=== PATIENT | female | born 1980 | race Caucasian/White ===

== ENCOUNTER 2017-03-11 10:52 | Emergency (ER) | payer OTHER ==
[2017-03-11 11:07] VITALS: RESP 18; TEMP 98.4
[2017-03-11] MEDS ORDERED: KETOROLAC 30 MG/1 ML SDV IVP ONE (11:25)
[2017-03-11] MEDS ORDERED: ONDANSETRON 4 MG/2 ML VIAL IVP ONE (11:25)
[2017-03-11] MEDS ORDERED: NS 1,000 ML IV ONE (11:25)
[2017-03-11 11:33] LABS: COLOR YELLOW; LEUKOCYTE ESTERASE,URINE NEGATIVE (NEGATIVE); NITRITE,URINE NEGATIVE (NEGATIVE)
[2017-03-11 11:37] LABS: AMORPHOUS 3+ /hpf (NONE-1+); BACTERIA TRACE /hpf (NONE SEEN); MUCUS 1+ /lpf (NONE-1+)
[2017-03-11 11:41] LABS: % IMMATURE GRANULYOCYTES 0.3 % (0.0-1.1); ABSOLUTE IMMATURE GRANULOCYTES 0.02 10^3/uL (0.00-0.10); ADD DIFF? NO; ADD MORPH? NO; ADD SCAN? NO; ATYPICAL LYMPHOCYTE FLAG 0 (0-99); FRAGMENT RBC FLAG 0 (0-99); LEFT SHIFT FLG 0 (0-99); LIPEMIA HEMOLYSIS FLAG 80 (0-99); MEAN CELL HEMOGLOBIN 25.6 pg (27.9-34.1); MEAN CELL HEMOGLOBIN CONCENTR. 32.3 g/dL (32.4-36.7); MEAN CELL VOLUME 79.3 fL (81.5-99.8); MEAN PLATELET VOLUME 10.6 fL (8.7-11.7); PLATELET CLUMPS FLAG 10 (0-99); PLATELET COUNT 226 10^3/uL (150-400); RED BLOOD CELL COUNT 3.91 10^6/uL (4.18-5.33); RED CELL DISTRIBUTION WIDTH 15.1 % (11.5-15.2)
[2017-03-11 11:58] LABS: ANION GAP 11 mEq/L (8-16); CALCIUM 8.7 mg/dL (8.5-10.4); CARBON DIOXIDE 20 mEq/l (22-31); CHLORIDE 109 mEq/L (97-110); CREATININE 0.7 mg/dL (0.6-1.0); GLOMERULAR FILTRATION RATE > 60; GLUCOSE 102 mg/dL (70-100); SODIUM 140 mEq/L (134-144)
[2017-03-11] MEDS ORDERED: TAMSULOSIN HCL 0.4 MG CAP PO ONE (12:11)
--- NOTE | 2017-03-11 12:16 | EDPHY ---
H & P Time Seen by Provider: 03/11/17 11:02 HPI/ROS: 36-year-old female presents complaining of sudden onset of severe left flank pain, associated with nausea. She had gone for a run this morning and had been feeling okay and when she returned started having intermittent flank pain followed by very severe flank pain that she initially called 911 for. After the ambulance arrived she felt a little bit better and was able to wait until her got home to drive to the emergency department. Prior to this episode today she had been having frequent urination without pain for the last 1 week for which she had self-treated with increasing fluids, cranberry juice and a supplement from whole foods. No fever or chills Review of systems As per HPI General no fever no chills no weakness HEENT no eye pain no eye discharge. No eye redness, no sore throat Respiratory no cough, no shortness of breath Cardiac no chest pain, no peripheral edema GI no abdominal pain, no diarrhea, no constipation, no nausea, no vomiting positive left flank pain, no hematuria, no dysuria, positive frequency Musculoskeletal no myalgias, no joint pain Heme no easy bruising, no easy bleeding Endo no polyuria, no polydipsia Skin no rashes, no pruritus Neuro no syncope, no dizziness, no headaches Psych is no suicidal ideation, no homicidal ideation Past Medical/Surgical History: Hypothyroidism Social History: Training for her 2nd ultra marathon in [place] April 2017 Smoking Status: Never smoked Physical Exam: 36-year-old female alert and oriented no acute distress nontoxic appearance afebrile Appears slightly pale HEENT atraumatic normocephalic, extraocular muscles intact, anicteric Oropharynx negative for erythema negative exudate, tolerating her own secretions Neck supple no meningismus Lungs clear to auscultation bilaterally Heart regular rate and rhythm without murmur rub or gallop Abdomen nondistended normoactive bowel sounds soft nontender Back mild left CVA tenderness, no step-offs, no spinal tenderness Extremities no cyanosis clubbing or edema Neuro alert and oriented, no focal deficits Constitutional: Initial Vital Signs Temperature (C) 36.9 C 03/11/17 11:05 Heart Rate 47 L 03/11/17 11:05 Respiratory Rate 18 03/11/17 11:05 Blood Pressure 141/92 H 03/11/17 11:05 O2 Sat (%) 99 08/09/17 11:05 O2 Delivery Mode Room Air Allergies/Adverse Reactions: No Known Allergies Allergy (Unverified 03/11/17 11:04) Home Medications: Medication Instructions Recorded Nuvaring Vaginal Ring 03/11/17 Synthroid 03/11/17 Tamsulosin HCl [Flomax 0.4 MG (*)] 0.4 mg PO DAILY #7 cap 03/11/17 oxyCODONE IR [Oxycodone Ir (*)] 5 mg PO Q6 PRN #6 tab 03/11/17 Medical Decision Making - Diagnostics Imaging Results: Imaging Impressions Abdomen/Pelvis CT 03/11/17 11:36 Impression: 1. Mild left hydroureteronephrosis secondary to a 3 mm obstructing calculus in the distal left ureterovesical junction. 2. No right nephrolithiasis or hydronephrosis. 3. No additional nephrolithiasis. 4. Left lower lobe probably benign 4 mm noncalcified pulmonary nodule. Attention: This CT examination is specifically designed to evaluate patients who are clinically suspected of having acute obstructive uropathy. This examination does not use radiographic contrast, and as such, provides only a limited evaluation of the abdomen, pelvis and retroperitoneum. If there is further clinical suspicion for pathological conditions other than obstructive uropathy, a complete CT evaluation of the abdomen and pelvis utilizing intravenous, oral, and rectal contrast should be considered. Findings and recommendations discussed with Emergency Department physician, Snehal Flood MD, at 1212 hours, 03/11/2017. Final report concurs with initial preliminary interpretation. ED Course/Re-evaluation: Patient seen and evaluated for acute left flank pain and urinary frequency Differential diagnosis considered Urinary tract infection, pyelonephritis, kidney stone Labs CBC with anemia hemoglobin 10, WBC within normal limits BMP within normal limits Urinalysis 3-5 RBCs, no evidence of infection CT abdomen and pelvis without contrast 3 mm left ureterovesical junction kidney stone with mild hydronephrosis Patient given 1 L normal saline, ondansetron 4 mg IV push and Toradol 30 mg IV push After diagnosis of kidney stone established patient given Flomax 0.4 mg p.o. Pain completely relieved. Impression Renal colic Left ureterolithiasis at [facility] Anemia Plan Follow-up primary care physician Flomax x1 week Oxycodone IR if needed, #6 - Data Points Laboratory Results: Laboratory Results 03/11/17 11:23 03/11/17 11:25 03/11/17 03/11/17 03/11/17 11:25 11:23 11:10 WBC 7.18 10^3/uL 10^3/uL (3.80-9.50) RBC 3.91 10^6/uL L 10^6/uL (4.18-5.33) Hgb 10.0 g/dL L g/dL (12.6-16.3) Hct 31.0 % L % (38.0-47.0) MCV 79.3 fL L fL (81.5-99.8) MCH 25.6 pg L pg (27.9-34.1) MCHC 32.3 g/dL L g/dL (32.4-36.7) RDW 15.1 % % (11.5-15.2) Plt Count 226 10^3/uL 10^3/uL (150-400) MPV 10.6 fL fL (8.7-11.7) Neut % (Auto) 75.0 % H % (39.3-74.2) Lymph % (Auto) 18.0 % % (15.0-45.0) [place] % (Auto) 5.4 % % (4.5-13.0) Eos % (Auto) 0.7 % % (0.6-7.6) Baso % (Auto) 0.6 % % (0.3-1.7) Nucleat RBC Rel Count 0.0 % % (0.0-0.2) Absolute Neuts (auto) 5.39 10^3/uL 10^3/uL (1.70-6.50) Absolute Lymphs (auto) 1.29 10^3/uL 10^3/uL (1.00-3.00) Absolute Monos (auto) 0.39 10^3/uL 10^3/uL (0.30-0.80) Absolute Eos (auto) 0.05 10^3/uL 10^3/uL (0.03-0.40) Absolute Basos (auto) 0.04 10^3/uL 10^3/uL (0.02-0.10) Absolute Nucleated RBC 0.00 10^3/uL 10^3/uL (0-0.01) Immature Gran % 0.3 % % (0.0-1.1) Immature Gran # 0.02 10^3/uL 10^3/uL (0.00-0.10) Sodium 140 mEq/L mEq/L (134-144) Potassium 4.0 mEq/L mEq/L (3.5-5.2) Chloride 109 mEq/L mEq/L (97-110) Carbon Dioxide 20 mEq/l L mEq/l (22-31) Anion Gap 11 mEq/L mEq/L (8-16) BUN 18 mg/dL mg/dL (7-23) Creatinine 0.7 mg/dL mg/dL (0.6-1.0) Estimated GFR > 60 Glucose 102 mg/dL H mg/dL (70-100) Calcium 8.7 mg/dL mg/dL (8.5-10.4) Urine Color Urine Appearance Urine pH Ur Specific Lookout Urine Protein Urine Ketones Urine Blood Urine Nitrate Urine Bilirubin Urine Urobilinogen Ur Leukocyte Esterase Urine RBC Urine WBC Ur Epithelial Cells Amorphous Sediment Urine Bacteria Urine Mucus Urine Glucose Urine Test NEGATIVE 03/11/17 11:10 WBC RBC Hgb Hct MCV MCH MCHC RDW Plt Count MPV Neut % (Auto) Lymph % (Auto) [place] % (Auto) Eos % (Auto) Baso % (Auto) Nucleat RBC Rel Count Absolute Neuts (auto) Absolute Lymphs (auto) Absolute Monos (auto) Absolute Eos (auto) Absolute Basos (auto) Absolute Nucleated RBC Immature Gran % Immature Gran # Sodium Potassium Chloride Carbon Dioxide Anion Gap BUN Creatinine Estimated GFR Glucose Calcium Urine Color YELLOW Urine Appearance CLEAR Urine pH 7.0 (5.0-7.5) Ur Specific Look[place] 1.015 (1.002-1.030) Urine Protein NEGATIVE (NEGATIVE) Urine Ketones NEGATIVE (NEGATIVE) Urine Blood TRACE H (NEGATIVE) Urine Nitrate NEGATIVE (NEGATIVE) Urine Bilirubin NEGATIVE (NEGATIVE) Urine Urobilinogen 0.2 EU EU (0.2-1.0) Ur Leukocyte Esterase NEGATIVE (NEGATIVE) Urine RBC 3-5 /hpf H /hpf (0-3) Urine WBC 3-5 /hpf H /hpf (0-3) Ur Epithelial Cells TRACE /lpf /lpf (NONE-1+) Amorphous Sediment 3+ /hpf H /hpf (NONE-1+) Urine Bacteria TRACE /hpf H /hpf (NONE SEEN) Urine Mucus 1+ /lpf /lpf (NONE-1+) Urine Glucose NEGATIVE (NEGATIVE) Urine Test Medications Given: Discontinued Medications Sodium Chloride (Ns) 1,000 mls @ 0 mls/hr IV ONCE ONE PRN Reason: Wide Open Stop: 03/11/17 11:26 Last Admin: 03/11/17 11:36 Dose: 1,000 mls Ketorolac Tromethamine (Toradol) 30 mg IVP EDNOW ONE Stop: 03/11/17 11:26 Last Admin: 03/11/17 11:37 Dose: 30 mg Ondansetron HCl (Zofran) 4 mg IVP EDNOW ONE Stop: 03/11/17 11:26 Last Admin: 03/11/17 11:36 Dose: 4 mg Tamsulosin HCl (Flomax) 0.4 mg PO EDNOW ONE Stop: 03/11/17 12:12 Last Admin: 03/11/17 12:18 Dose: 0.4 mg Departure - Departure Disposition: Home, Routine, Self-Care Clinical Impression: Left ureteral stone, Anemia Condition: Good Instructions: Renal Colic (ED), Iron Rich Diet (ED), Iron Deficiency Anemia (ED ), Anemia (ED), Vitamin B12 Deficiency (ED), Ureteral Stones (ED) Referrals: DHAVAL HAGER [Other] - As per Instructions Prescriptions: oxyCODONE IR [Oxycodone Ir (*)] 5 mg PO Q6 PRN #6 tab PRN Reason: Pain, Severe Tamsulosin HCl [Flomax 0.4 MG (*)] 0.4 mg PO DAILY #7 cap
[2017-03-11 12:19] VITALS: BP 108/69; PULSE 48; O2SAT 98
[2017-03-11 18:32] LABS: % SATURATION 4 % (20-55); TOTAL IRON BINDING CAPACITY 521 ug/dL (260-490)
== END 2017-03-11 12:52 | disposition home or self-care (01) ==
LOC: CED 10:52
DX: N20.1 Calculus of ureter (principal); D64.9 Anemia, unspecified
CPT/HCPCS: 74176-PO; 80048-PO; 81003-PO; 81015-PO; 81025-PO; 85025-PO; 96374; J1885; J2405

== ENCOUNTER 2017-03-11 20:31 | Emergency (ER) | payer OTHER ==
[2017-03-11] MEDS ORDERED: ONDANSETRON 4 MG/2 ML VIAL IVP ONE (20:40)
[2017-03-11] MEDS ORDERED: KETOROLAC 30 MG/1 ML SDV IVP ONE (20:40)
[2017-03-11] MEDS ORDERED: NS 1,000 ML IV ONE (20:40)
[2017-03-11] MEDS ORDERED: HYDROmorphONE/DILAUDID 1 MG/ML SYR ONE (20:59)
[2017-03-11 21:03] LABS: ANION GAP 12 mEq/L (8-16); CALCIUM 8.8 mg/dL (8.5-10.4); CARBON DIOXIDE 19 mEq/l (22-31); CHLORIDE 108 mEq/L (97-110); CREATININE 0.9 mg/dL (0.6-1.0); GLOMERULAR FILTRATION RATE > 60; GLUCOSE 111 mg/dL (70-100); SODIUM 139 mEq/L (134-144)
[2017-03-11] MEDS ORDERED: HYDROmorphONE/DILAUDID 1 MG/ML SYR IVP ONE (21:06)
[2017-03-11 21:17] VITALS: TEMP 99.1
[2017-03-11] MEDS ORDERED: ONDANSETRON 4MG PREPACK#2 BTL TAKEHOME ONE ×2 (22:00→22:06)
--- NOTE | 2017-03-11 22:03 | EDPHY ---
H & P Stated Complaint: pain left flank and LLQ, vomiting from kidney stone Time Seen by Provider: 03/11/17 20:39 HPI/ROS: This patient was seen earlier in the day for a left distal ureteral 3 mm stone documented by CT. She had complete relief of her discomfort initially with Toradol IV and was sent out on oxycodone. She reports that she developed severe pain after 6.5 hours post Toradol and developed vomiting that she attributes to the pain. She was unable to keep down any analgesics at home and came back in for evaluation. She reports that her pain is now severe intensity and is now more left lower quadrant than left flank. She notes no other exacerbating or alleviating factors. ROS: No fevers or chills. HEENT: No complaints Pulmonary: No shortness of breath Cardiovascular: No chest pain or heart palpitations GI: Mild nausea persists. : No gross hematuria. 10 point ROS is otherwise negative. Source: Patient - Personal History Current Tetanus Diphtheria and Acellular Pertussis (TDAP): Yes Tetanus Vaccine Date: unsure - Medical/Surgical History Hx Asthma: No Hx Chronic Respiratory Disease: No Hx Diabetes: No Hx Cardiac Disease: No Hx Renal Disease: No Hx Cirrhosis: No Hx Alcoholism: No Hx HIV/AIDS: No Hx Splenectomy or Spleen Trauma: No Other PMH: hypothyroid. The patient was noted to have mild anemia on the earlier visit today and iron studies pending. - Family History Significant Family History: No pertinent family hx - Social History Smoking Status: Never smoked Alcohol Use: Occasionally Drug Use: None - Physical Exam Exam: General Appearance: Moderate distress due to pain Alert, no distress. Eyes: Pupils equal and round no pallor or injection. ENT, Mouth: Mucous membranes moist. Respiratory: There are no retractions, lungs are clear to auscultation. Cardiovascular: Regular rate and rhythm. Gastrointestinal: Abdomen is soft with minimal left lower quadrant tenderness. No guarding or rebound., no masses, bowel sounds normal. Back: Mild left CVA tenderness Neurological: GCS 15 with no deficits Skin: She initially has some pallor. No erythema. No rash. Musculoskeletal: Neck is supple nontender. Extremities are symmetrical, full range of motion. Psychiatric: Mood and affect normal DIFFERENTIAL DIAGNOSIS: After history and physical exam differential diagnosis was considered for ureteral stone with ongoing pain and complication of vomiting with dehydration. Rule out renal insufficiency renal failure Constitutional: Initial Vital Signs Temperature (C) 37.3 C 03/11/17 21:14 Heart Rate 52 L 03/11/17 21:14 Respiratory Rate 16 03/11/17 21:14 Blood Pressure 132/90 H 03/11/17 21:14 O2 Sat (%) 98 03/11/17 21:14 O2 Delivery Mode Room Air Allergies/Adverse Reactions: No Known Allergies Allergy (Verified 03/11/17 21:13) Home Medications: Medication Instructions Recorded Nuvaring Vaginal Ring 03/11/17 Ondansetron Odt [Zofran Odt] 4 - 8 mg PO Q4PRN PRN #4 tab 03/11/17 Synthroid 03/11/17 Tamsulosin HCl [Flomax 0.4 MG (*)] 0.4 mg PO DAILY #7 cap 03/11/17 oxyCODONE IR [Oxycodone Ir (*)] 5 mg PO Q6 PRN #6 tab 03/11/17 oxyCODONE/APAP 5/325 [Percocet 1 - 2 tab PO Q4-6PRN PRN #15 tab 03/12/17 5/325 (*)] Medical Decision Making ED Course/Re-evaluation: Labs-basic metabolic panel with no significant abnormalities I reviewed the patient's chart from earlier in the day and also reviewed her CT scan results. IV normal saline bolus, Toradol 30 mg IV, Zofran with resolution of nausea. She still had persistent pain over the Toradol was treated with Dilaudid with relief. The patient called the next day requesting more oxycodone. Review of her previous chart reveals that she was discharged with script for 6 oxycodone is. Will provide more analgesics for this patient she still having ongoing pain. I do not suspect that she is abusing opiates. - Data Points Laboratory Results: Laboratory Results 03/11/17 20:41 Medications Given: Discontinued Medications Hydromorphone HCl (Dilaudid) 0.5 mg IVP EDNOW ONE Stop: 03/11/17 21:07 Last Admin: 03/11/17 21:08 Dose: 0.5 mg Sodium Chloride (Ns) 1,000 mls @ 0 mls/hr IV EDNOW ONE; Wide Open PRN Reason: Protocol Stop: 03/11/17 20:41 Last Admin: 03/11/17 20:52 Dose: 1,000 mls Ketorolac Tromethamine (Toradol) 30 mg IVP EDNOW ONE Stop: 03/11/17 20:41 Last Admin: 03/11/17 20:51 Dose: 30 mg Ondansetron HCl (Zofran) 4 mg IVP EDNOW ONE Stop: 03/11/17 20:41 Last Admin: 03/11/17 20:52 Dose: 4 mg Ondansetron HCl (Zofran Odt 4 Mg Prepack#2) 1 btl TAKEHOME EDNOW ONE Stop: 03/11/17 22:07 Last Admin: 03/11/17 22:10 Dose: 1 btl Ondansetron HCl (Zofran Odt 4 Mg Prepack#2) 1 btl TAKEHOME EDNOW ONE Stop: 03/11/17 22:01 Last Admin: 03/11/17 22:10 Dose: 1 btl Departure - Departure Disposition: Home, Routine, Self-Care Clinical Impression: Ureteral calculus, left, Vomiting Condition: Good Instructions: Acute Nausea and Vomiting (ED), Ureteral Stones (ED) Additional Instructions: Diagnosis: 1. Ureteral stone 2. Vomiting Plan: Drink plenty fluids Zofran prior to taking oxycodone Also, Zofran if needed for nausea or vomiting Ibuprofen scheduled day-take 600 mg 6 hours after Toradol dose and her 6 hours thereafter for the next few days until symptoms improve Tylenol in addition if needed. No driving, alcohol or come your oxycodone. Return for any significant worsening despite treatment plan. Referrals: NONE *PRIMARY CARE P,. [Primary Care Provider] - As per Instructions Prescriptions: Ondansetron Odt [Zofran Odt] 4 - 8 mg PO Q4PRN PRN #4 tab PRN Reason: Vomiting oxyCODONE/APAP 5/325 [Percocet 5/325 (*)] 1 - 2 tab PO Q4-6PRN PRN #15 tab PRN Reason: Pain
[2017-03-11 22:24] VITALS: BP 128/86; PULSE 56; RESP 12; O2SAT 96
== END 2017-03-11 22:21 | disposition home or self-care (01) ==
LOC: CED 20:31
DX: N20.1 Calculus of ureter (principal); E86.9 Volume depletion, unspecified
CPT/HCPCS: 80048-PO; 96374; J1170; J1885; J2405

== ENCOUNTER 2017-03-14 13:29 | Emergency (ER) | payer OTHER ==
[2017-03-14 13:45] LABS: COLOR YELLOW; LEUKOCYTE ESTERASE,URINE NEGATIVE (NEGATIVE); NITRITE,URINE NEGATIVE (NEGATIVE); PH,URINE 5.5 (5.0-7.5)
[2017-03-14 13:46] VITALS: RESP 16; TEMP 99
[2017-03-14 14:02] LABS: BACTERIA TRACE /hpf (NONE SEEN); RBC,URINE 0-1 /hpf (0-3)
[2017-03-14 14:22] LABS: % IMMATURE GRANULYOCYTES 0.2 % (0.0-1.1); ABSOLUTE IMMATURE GRANULOCYTES 0.01 10^3/uL (0.00-0.10); ADD DIFF? NO; ADD MORPH? NO; ADD SCAN? NO; ATYPICAL LYMPHOCYTE FLAG 0 (0-99); FRAGMENT RBC FLAG 0 (0-99); HEMATOCRIT 28.3 % (38.0-47.0); HEMOGLOBIN 8.9 g/dL (12.6-16.3); LEFT SHIFT FLG 0 (0-99); LIPEMIA HEMOLYSIS FLAG 80 (0-99); MEAN CELL HEMOGLOBIN 25.2 pg (27.9-34.1); MEAN CELL HEMOGLOBIN CONCENTR. 31.4 g/dL (32.4-36.7); MEAN CELL VOLUME 80.2 fL (81.5-99.8); MEAN PLATELET VOLUME 10.8 fL (8.7-11.7); PLATELET CLUMPS FLAG 10 (0-99); PLATELET COUNT 198 10^3/uL (150-400); RED BLOOD CELL COUNT 3.53 10^6/uL (4.18-5.33); RED CELL DISTRIBUTION WIDTH 14.7 % (11.5-15.2)
[2017-03-14 14:34] LABS: ANION GAP 9 mEq/L (8-16); CALCIUM 8.4 mg/dL (8.5-10.4); CARBON DIOXIDE 23 mEq/l (22-31); CHLORIDE 107 mEq/L (97-110); CREATININE 0.7 mg/dL (0.6-1.0); GLOMERULAR FILTRATION RATE > 60; GLUCOSE 87 mg/dL (70-100); POTASSIUM 3.9 mEq/L (3.5-5.2); SODIUM 139 mEq/L (134-144)
--- NOTE | 2017-03-14 15:01 | EDPHY ---
H & P Time Seen by Provider: 03/14/17 13:42 HPI/ROS: This patient presents complaining of a 10 lb weight gain and lower extremity swelling 3 days after being diagnosed with distal left 3 mm ureteral calculus confirmed by CT scan. She initially had relief with Toradol on 03/11/2017 IV was discharged with total of 6 oxycodone so but returned with pain vomiting the same day. She was given additional Percocet after repeat Toradol IV instructed to take ibuprofen primarily for her pain. She was discharged with a filter and has noticed the stone. She admits that the pain has significantly reduced but she is still taking 1-3 Percocet a day and has not taken the ibuprofen. She has not had a bowel movement in 4 days and she reports a 10 lb weight gain. She usually is quite active training for marathon running but has not been active, has been sitting at her desk and notes swelling in her legs. It is noted that Between her 2 visits on 02/08/2017 she had 4 L of IV saline and treatment of her ureteral stone. At this time she reports no significant pain in the flank or belly. The patient is also noted to have mild anemia with a hematocrit around 30. Iron study was sent shows a low iron. Constitutional: No fevers. No other constitutional symptoms HEENT: No complaints Pulmonary: No shortness of breath chest pain. No cough. Cardiovascular: She denies any heart palpitations. No lightheadedness. No paroxysmal nocturnal dyspnea or dyspnea on exertion. GI: No nausea or vomiting since her visit on 02/08/2017. No dark tarry stools. : No hematuria. No dysuria, frequency urgency. She does have mild polyuria that she attributes to increasing fluid intake. She denies any heavy menses. Integumentary: No complaints Endocrine: No complaints 10 point ROS is otherwise negative. Past Medical/Surgical History: Distal ureteral stone diagnosed on 03/11/[address] scan Smoking Status: Never smoked Physical Exam: Vital signs are normal. General Appearance: Pleasant 36-year-old female Alert, no distress. Eyes: Pupils equal and round no pallor or injection. ENT, Mouth: Mucous membranes moist. Respiratory: There are no retractions, lungs are clear to auscultation. Cardiovascular: Regular rate and rhythm. No murmur gallop rub. No JVD. Patient does have mild lower extremity edema but no pitting edema Gastrointestinal: Abdomen is soft and nontender, no masses, bowel sounds normal. Back: Mild left CVA tenderness persists. Otherwise normal. Neurological: GCS 15 with no deficits. Skin: Warm and dry, no rashes. Musculoskeletal: Neck is supple nontender. Extremities are symmetrical, full range of motion. Psychiatric: Mood and affect normal. DIFFERENTIAL DIAGNOSIS: After history and physical exam differential diagnosis was considered for fluid overload with dependent edema attributable to increase fluid in decreased activity, rule out renal insufficiency renal failure, worsening anemia, electrolyte abnormality, persistent ureteral stone Constitutional: Initial Vital Signs Temperature (C) 37.2 C 03/14/17 13:40 Heart Rate 56 L 03/14/17 13:40 Respiratory Rate 16 03/14/17 13:40 Blood Pressure 129/83 H 03/14/17 13:40 O2 Sat (%) 98 03/14/17 13:40 O2 Delivery Mode Room Air Allergies/Adverse Reactions: No Known Allergies Allergy (Verified 03/14/17 13:46) Home Medications: Medication Instructions Recorded Nuvaring Vaginal Ring 03/11/17 Synthroid 03/11/17 Docusate Sodium [Colace 100 MG (*)] 100 mg PO BID #20 cap 03/14/17 oxyCODONE/APAP 5/325 [Percocet 03/14/17 5/325 (*)] MDM/Departure - MDM Imaging Results: KUB: Negative for evidence of persistent ureteral calculi by my interpretation ED Course/Re-evaluation: I encouraged the patient to stop her oxycodone at this point as I think that she likely passed her stone. I think that her weight gain is treated will to her constipation coupled with increased fluid intake between oral intake in her IV fluids in the last 3 days. 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 I counseled regarding this. After workup find no evidence of renal failure, persistent ureteral stone , UTI, heart failure or other concerning findings. She does have persistent anemia and she has follow up with primary care physician for further evaluation of this. The patient is comfortable time discharge is reassured by workup today. I counseled regarding constipation encouraging her start Colace and other maneuvers to resolve the constipation - Depart Disposition: Home, Routine, Self-Care Clinical Impression: Lower extremity edema Constipation Qualifiers: Constipation type: drug induced constipation Qualified Code(s): K59.03 - Drug induced constipation Anemia Qualifiers: Anemia type: iron deficiency Iron deficiency anemia type: other iron deficiency Qualified Code(s): D50.8 - Other iron deficiency anemias Condition: Good Instructions: Constipation (ED) Additional Instructions: Diagnosis: 1. Constipation 2. Lower extremity edema Plan: Prop up your legs when able and start exercising as tolerated again Stop the Percocet. Take ibuprofen [id number] mg per 6 hours if needed Tylenol in addition if needed Colace stool softener MiraLax in addition if needed Plenty of fruits, fiber an fluids. Return for any significant worsening despite treatment plan Follow up with urologist for any ongoing flank pain Prescriptions: Docusate Sodium [Colace 100 MG (*)] 100 mg PO BID #20 cap Referrals: DHAVAL MARSHALL [Other] - As per Instructions Maynor Siddiqui MD [Medical Doctor] - As per Instructions
[2017-03-14 15:44] VITALS: BP 114/76; PULSE 45; O2SAT 97
== END 2017-03-14 15:25 | disposition home or self-care (01) ==
LOC: CED 13:29
DX: R60.0 Localized edema (principal); K59.03 Drug induced constipation; D50.8 Other iron deficiency anemias
CPT/HCPCS: 74000-PO; 80048-PO; 81003-PO; 81015-PO; 81025-PO; 85025-PO